=== PATIENT | male | born 1960 | race Caucasian/White ===

== ENCOUNTER 2020-06-19 10:52 | Inpatient (IN) | payer MEDICAID, SELFPAY ==
[~2020-06-19] VITALS: Ht 182.9 cm; Wt 85.1 kg
[2020-06-19] MEDS ORDERED: DILTIAZEM 5 MG/ML, 5ML ONE (11:07)
[2020-06-19 11:30] LABS: RED BLOOD COUNT 2.37 x10^6/uL (4.38-5.82)
[2020-06-19] MEDS ORDERED: PLEASE ENTER ALLERGIES MC SCH (11:30)
[2020-06-19] MEDS ORDERED: SODIUM CHLORIDE FLUSH 10ML SYR IVF ONE (11:30)
[2020-06-19] MEDS ORDERED: DILTIAZEM 5 MG/ML, 5ML IV ONE (11:30)
[2020-06-19] MEDS ORDERED: SODIUM CHLORIDE 0.9%, 500ML IVBOLUS ONE (11:30)
[2020-06-19 11:36] LABS: MEAN CORPUSCULAR HEMOGLOBIN 21.7 pg (27.5-34.5); MEAN CORPUSCULAR HGB CONC 31.1 g/dL (33.2-36.2); MEAN PLATELET VOLUME 7.3 fL (7.4-10.4); PLATELET COUNT 338 x10^3/uL (130-400); RED CELL DISTRIBUTION WIDTH 19.5 % (9.4-14.8)
[2020-06-19 11:37] LABS: INTERNATIONAL NORMALIZED RATIO 1.44 (0.93-1.1); PROTHROMBIN TIME 15.2 Seconds (9.6-11.5)
[2020-06-19 11:40] LABS: ANION GAP 17 mmol/L (5-15); CALCIUM 8.5 mg/dL (8.5-10.1); CHLORIDE 90 mmol/L (98-107); CREATININE 2.09 mg/dL (0.7-1.3)
[2020-06-19 11:41] LABS: ALANINE AMINOTRANSFERASE 124 U/L (12-78); ALBUMIN 2.3 g/dL (3.4-5.0)
[2020-06-19 11:45] LABS: ALKALINE PHOSPHATASE 86 U/L (45-117); BILIRUBIN,TOTAL 0.6 mg/dL (0.2-1.0); TROPONIN I < 0.015 ng/mL (0.000-0.045)
[2020-06-19 11:46] LABS: MD YES
[2020-06-19 11:54] LABS: ANISOCYTOSIS 1+; BAND#(MANUAL) 2.88 x10^3/uL; BANDS%(MANUAL) 10 % (0-7); LYMPH#(MANUAL) 1.15 x10^3/uL (1-3.4); LYMPHS% (MANUAL) 4 % (22-44); MICROCYTOSIS 2+; MONOS#(MANUAL) 0.86 x10^3/uL (0.3-2.7); MONOS% (MANUAL) 3 % (2-9); SEGS% (MANUAL) 83 % (42-75)
[2020-06-19 11:55] LABS: HYPOCHROMIA 2+; OVALOCYTES 1+; TEAR DROPS 1+
[2020-06-19 11:56] LABS: <PLATELET ESTIMATE> ADEQUATE; <PLT MORPHOLOGY> NORMAL PLT MORPH
[2020-06-19] MEDS ORDERED: CEFTRIAXONE PMX 1GM/50ML 50 ML IVPB ONE (12:00)
--- NOTE | 2020-06-19 12:06 | NUR ---
carlos in room for update, plan blood tx, protonix gtt, abx, pt tbadm, aware and agrees. +guiac. pt w freq nosebleeds. no hx gib. blood requested. lab at bedside drawing blood cultures. as
[2020-06-19] MEDS ORDERED: CEFTRIAXONE PMX 1GM/50ML 50 ML ONE (12:16)
[2020-06-19 12:29] VITALS: BP 90/61
[2020-06-19] MEDS ORDERED: HUM PROTHROMBIN CPLX IV ONE ×3 (12:30→12:45)
[2020-06-19] MEDS ORDERED: [UNRECOGNIZED DRUG - OTHER] IV ONE ×2 (12:30→12:45)
[2020-06-19] MEDS ORDERED: PANTOPRAZOLE 80 MG in SODIUM CHLORIDE 0.9% 50 ML IVPB ONE (12:30)
[2020-06-19] MEDS ORDERED: [UNRECOGNIZED DRUG - OTHER] IV ONE (12:30)
[2020-06-19] MEDS: PANTOPRAZOLE 80 MG in SODIUM CHLORIDE 0.9% 100 ML IV SCH ×2 (12:38→21:17)
--- NOTE | 2020-06-19 12:39 | NUR ---
blood hung w 2 rn check, consent signed, vs as charted, abx and protonix gtt initiated, compatible. as
--- NOTE | 2020-06-19 12:45 | NUR ---
pt denies transfusion related symptoms, blood rate incr. as
--- NOTE | 2020-06-19 12:56 | NUR ---
hypotnsive, blood on pressure bag. 500 cc ns bolus per verbal order by dr minaya, in room. pt tb icu. as
--- NOTE | 2020-06-19 13:00 | NUR ---
lactic 5.8, [place] aware, no sepsis boluses d/t elevated bnp, heart failure. as
[2020-06-19] MEDS ORDERED: NOREPINEPHRINE 8 MG in SODIUM CHLORIDE 0.9% 242 ML IV PRN (13:30)
[2020-06-19] MEDS ORDERED: ACETAMINOPHEN 650 MG SUPP PR PRN (13:30)
[2020-06-19] MEDS ORDERED: FILTER 0.22 MICRON IV PRN (13:30)
[2020-06-19] MEDS ORDERED: VANCOMYCIN PER PHARMACY MC PRN (13:30)
[2020-06-19] MEDS ORDERED: PHARMACY MAY ADJ FOR RENAL FX MC PRN (13:30)
[2020-06-19] MEDS ORDERED: SODIUM CHLORIDE 0.9% 1,000ML IVBOLUS ONE (13:30)
[2020-06-19] MEDS ORDERED: ONDANSETRON 2MG/ML, 2ML IVPB PRN (13:30)
[2020-06-19] MEDS ORDERED: AMIODARONE 150 MG in DEXTROSE 5% 97 ML IVPB ONE (13:45)
--- NOTE | 2020-06-19 13:46 | NUR ---
carlos in room to place central. kristopher chamberlain dr to see pt. 2nd prbc transfusing. as
[2020-06-19] MEDS ORDERED: DIGO125T85 PO (14:03)
[2020-06-19] MEDS ORDERED: MONT10TA96 PO (14:03)
[2020-06-19] MEDS ORDERED: METO50TA4 PO (14:03)
[2020-06-19] MEDS ORDERED: ROFL250T PO (14:03)
[2020-06-19] MEDS ORDERED: TIOT18CA INH (14:03)
[2020-06-19] MEDS ORDERED: ALBU2.5V NEB (14:03)
[2020-06-19] MEDS ORDERED: POTA20TA14 PO (14:03)
[2020-06-19] MEDS ORDERED: IPRA3AMP30 INH (14:03)
[2020-06-19] MEDS ORDERED: APIX5TAB PO (14:03)
[2020-06-19] MEDS ORDERED: METO100T5 PO (14:03)
[2020-06-19] MEDS ORDERED: FURO40TA6 PO (14:03)
[2020-06-19] MEDS ORDERED: ATOR40TA78 PO (14:03)
[2020-06-19] MEDS ORDERED: LOSA25TA2 PO (14:03)
[2020-06-19] MEDS ORDERED: SPIR25TA5 PO (14:03)
[2020-06-19] MEDS ORDERED: DILT240C82 PO (14:03)
[2020-06-19] MEDS ORDERED: FLUT1BLS10 INH (14:03)
--- NOTE | 2020-06-19 14:38 | NUR ---
puga inserted. as
[2020-06-19] MEDS: AMIODARONE 450 MG in DEXTROSE 5% 241 ML IV PRN ×2 (14:39→21:32)
[2020-06-19 14:40] LABS: % IRON SATURATION 4 % (20-55); IRON LEVEL 12 mcg/dL (65-175); TOTAL IRON BINDING CAPACITY 339 mcg/dL (250-450)
[2020-06-19] MEDS: MEROPENEM 500 MG in SODIUM CHLORIDE 0.9% 100 ML IV SCH ×2 (14:55→21:20)
[2020-06-19 15:03] VITALS: BP 91/60
--- NOTE | 2020-06-19 15:04 | NUR ---
Break RN note: Pt medicated per SEP. Pt provided with cool washcloth per request. Pt requesting nebulized breathing tx, reports he normally takes them q4h at home.
--- NOTE | 2020-06-19 15:21 | NUR ---
Break RN note: Spoke with Dr. Rutledge regarding pt's home duoneb schedule. Orders recieved for duoneb tx q4-6hr PRN wheezing. Order entered.
[2020-06-19] MEDS ORDERED: ALBUTEROL/IPRATROPIUM 2.5MG/0.5MG, 3 ML ONE (15:23)
[2020-06-19] MEDS ORDERED: ALBUTEROL/IPRATROPIUM 2.5MG/0.5MG, 3 ML NEB PRN (15:30)
--- NOTE | 2020-06-19 15:40 | NUR ---
blood infused. [phone] cc. 250 cc NS w transfusion, 250 cc bolus on arrival, 100 cc ns per ems= 600 cc NS.
[2020-06-19 15:47] LABS: MICROSCOPIC INDICATED
[2020-06-19 15:48] LABS: OSMOLALITY,URINE 372 mOsm/kg (500-850)
--- NOTE | 2020-06-19 15:55 | NUR ---
REPORT TO [facility] [place]
[2020-06-19 17:00] VITALS: BP 128/71
[2020-06-19] MEDS ORDERED: VANCOMYCIN 2,000 MG in SODIUM CHLORIDE 0.9% 500 ML IV ONE (17:00)
[2020-06-19] MEDS ORDERED: PHARMACOKINETIC MONITORING MC PRN (17:00)
[2020-06-19] MEDS ORDERED: PHARMACOKINETIC CONSULTATION MC ONE (17:00)
[2020-06-19 18:12] VITALS: BP 101/72
[2020-06-19 18:30] VITALS: BP 118/72
[2020-06-19 18:46] LABS: TROPONIN I < 0.015 ng/mL (0.000-0.045)
[2020-06-19] MEDS ORDERED: LORazepam 2 MG/ML, 1ML ONE (20:06)
[2020-06-19] MEDS: LORazepam 2 MG/ML, 1ML IVPush PRN (20:10)
[2020-06-19] MEDS: FLUTICASONE/VILANTEROL 200-25MCG/INH INH SCH (21:20)
[2020-06-19 21:45] VITALS: BP 131/81
[2020-06-19] MEDS ORDERED: FUROSEMIDE 40 MG/4 ML ONE (21:58)
[2020-06-19] MEDS ORDERED: FUROSEMIDE 40 MG/4 ML IV ONE (22:00)
[2020-06-20] MEDS ORDERED: PHARMACY MAY ADJ FOR RENAL FX MC SCH (00:30)
[2020-06-20] MEDS ORDERED: SENNA/DOCUSATE TABLET NG PRN (00:30)
[2020-06-20] MEDS ORDERED: ONDANSETRON 2MG/ML, 2ML IV PRN (00:30)
[2020-06-20] MEDS ORDERED: LIDOCAINE-MPF 1%, 2ML ENDO PRN (00:30)
[2020-06-20] MEDS ORDERED: PROPOFOL 100 ML IV PRN (00:30)
[2020-06-20] MEDS ORDERED: BISACODYL 10 MG SUPP PR PRN (00:30)
[2020-06-20] MEDS ORDERED: GLUCAGON 1 MG IM PRN (00:30)
[2020-06-20] MEDS ORDERED: SENNA 176 MG/5 ML ORAL SOL NG PRN (00:30)
[2020-06-20] MEDS ORDERED: DEXTROSE 50%, 50ML SYRINGE IVPush PRN (00:30)
[2020-06-20] MEDS ORDERED: DEXTROSE 4 GM TAB.CHEW PO PRN (00:30)
[2020-06-20] MEDS ORDERED: LACTULOSE 20 GM/30 ML UDC NG PRN (00:30)
[2020-06-20 00:54] LABS: TRIGLYCERIDES 108 mg/dL (50-200)
[2020-06-20 00:57] LABS: TROPONIN I < 0.015 ng/mL (0.000-0.045)
[2020-06-20] MEDS: PROPOFOL 100 ML IV PRN ×4 (02:30→17:44)
[2020-06-20] MEDS: FENTANYL PF 1,000 MCG in SODIUM CHLORIDE 0.9% 80 ML IV PRN (03:18)
[2020-06-20] MEDS ORDERED: PROPOFOL 10 MG/ML, 100ML IV ONE (04:24)
[2020-06-20] MEDS ORDERED: SUCCINYLCHOLINE 20 MG/ML, 10ML ONE (04:24)
[2020-06-20] MEDS ORDERED: ETOMIDATE 20 MG/10 ML ONE (04:24)
[2020-06-20 05:08] LABS: BILIRUBIN,TOTAL 1.6 mg/dL (0.2-1.0); TROPONIN I 0.028 ng/mL (0.000-0.045)
[2020-06-20 05:14] LABS: ALANINE AMINOTRANSFERASE 996 U/L (12-78); ALBUMIN 2.2 g/dL (3.4-5.0); ANION GAP 13 mmol/L (5-15); CALCIUM 7.6 mg/dL (8.5-10.1); CHLORIDE 92 mmol/L (98-107); CREATININE 2.06 mg/dL (0.7-1.3); MEAN CORPUSCULAR HEMOGLOBIN 23.7 pg (27.5-34.5); MEAN CORPUSCULAR HGB CONC 31.7 g/dL (33.2-36.2); MEAN PLATELET VOLUME 7.1 fL (7.4-10.4); PLATELET COUNT 330 x10^3/uL (130-400); RED BLOOD COUNT 2.92 x10^6/uL (4.38-5.82); RED CELL DISTRIBUTION WIDTH 21.6 % (9.4-14.8)
[2020-06-20 05:30] LABS: ALKALINE PHOSPHATASE 84 U/L (45-117); BILIRUBIN,TOTAL 1.4 mg/dL (0.2-1.0); TOTAL PROTEIN 7.1 g/dL (6.4-8.2)
[2020-06-20] MEDS: PANTOPRAZOLE 80 MG in SODIUM CHLORIDE 0.9% 100 ML IV SCH ×2 (05:41→13:21)
[2020-06-20 05:49] VITALS: BP 94/58
[2020-06-20 06:05] VITALS: BP 90/59
[2020-06-20 06:05] LABS: MD YES
[2020-06-20 06:07] LABS: <PLATELET ESTIMATE> ADEQUATE; ANISOCYTOSIS 1+; BAND#(MANUAL) 1.99 x10^3/uL; BANDS%(MANUAL) 8 % (0-7); HYPOCHROMIA 2+; LARGE PLATELETS 1+; LYMPHS% (MANUAL) 2 % (22-44); METAMYELOCYTES% (MANUAL) 2 % (0-1); MICROCYTOSIS 2+; MONOS#(MANUAL) 1.25 x10^3/uL (0.3-2.7); MONOS% (MANUAL) 5 % (2-9); OVALOCYTES 1+; SEG#(MANUAL) 20.67 x10^3/uL (1.8-6.8); SEGS% (MANUAL) 83 % (42-75); TEAR DROPS 1+
[2020-06-20 06:08] LABS: POLYCHROMASIA 1+
[2020-06-20] MEDS: MEROPENEM 500 MG in SODIUM CHLORIDE 0.9% 100 ML IV SCH ×3 (06:16→21:09)
[2020-06-20 08:28] LABS: FIO2 40 %
[2020-06-20 09:00] VITALS: BP 95/63
[2020-06-20] MEDS: FLUTICASONE/VILANTEROL 200-25MCG/INH INH SCH ×2 (09:00→20:21)
[2020-06-20] MEDS: SODIUM CHLORIDE FLUSH 10ML SYR IVF SCH ×2 (09:00→21:09)
[2020-06-20] MEDS ORDERED: EPINEPHRINE SYRINGE 0.1 MG/ML, 10ML ONE (11:18)
[2020-06-20 12:07] VITALS: BP 105/64
[2020-06-20 12:25] VITALS: BP 99/70
[2020-06-20] MEDS: AMIODARONE 450 MG in DEXTROSE 5% 241 ML IV PRN (13:20)
[2020-06-20 15:08] VITALS: BP 92/59
[2020-06-20] MEDS: ALBUTEROL/IPRATROPIUM 2.5MG/0.5MG, 3 ML NPPB SCH (23:12)
[2020-06-21] MEDS: PANTOPRAZOLE 80 MG in SODIUM CHLORIDE 0.9% 100 ML IV SCH ×3 (00:02→20:33)
[2020-06-21] MEDS: FENTANYL PF 1,000 MCG in SODIUM CHLORIDE 0.9% 80 ML IV PRN (00:03)
[2020-06-21] MEDS: PROPOFOL 100 ML IV PRN ×5 (00:22→22:21)
[2020-06-21] MEDS: ALBUTEROL/IPRATROPIUM 2.5MG/0.5MG, 3 ML NPPB SCH ×6 (02:08→22:27)
[2020-06-21] MEDS: AMIODARONE 450 MG in DEXTROSE 5% 241 ML IV PRN ×2 (04:04→20:33)
[2020-06-21 04:45] LABS: MEAN CORPUSCULAR HEMOGLOBIN 24.6 pg (27.5-34.5); MEAN CORPUSCULAR HGB CONC 32.4 g/dL (33.2-36.2); MEAN PLATELET VOLUME 7.1 fL (7.4-10.4); PLATELET COUNT 328 x10^3/uL (130-400); RED BLOOD COUNT 3.25 x10^6/uL (4.38-5.82); RED CELL DISTRIBUTION WIDTH 22.4 % (9.4-14.8)
[2020-06-21 04:51] LABS: ANION GAP 9 mmol/L (5-15); CALCIUM 7.7 mg/dL (8.5-10.1); CHLORIDE 100 mmol/L (98-107)
[2020-06-21 04:54] LABS: BILIRUBIN,TOTAL 1.2 mg/dL (0.2-1.0); CREATININE 1.43 mg/dL (0.7-1.3)
[2020-06-21] MEDS: MEROPENEM 500 MG in SODIUM CHLORIDE 0.9% 100 ML IV SCH (05:15)
[2020-06-21 05:55] LABS: MD YES
[2020-06-21 05:56] LABS: BAND#(MANUAL) 1.16 x10^3/uL; BANDS%(MANUAL) 7 % (0-7); METAMYELOCYTES# (MANUAL) 0.33 x10^3/uL (0-0); METAMYELOCYTES% (MANUAL) 2 % (0-1); MONOS% (MANUAL) 3 % (2-9); MYELOCYTES# (MANUAL) 0.17 x10^3/uL (0-0); MYELOCYTES% (MANUAL) 1 % (0-0)
[2020-06-21 05:57] LABS: ANISOCYTOSIS 1+; HYPOCHROMIA 2+; LYMPH#(MANUAL) 0.66 x10^3/uL (1-3.4); LYMPHS% (MANUAL) 4 % (22-44); MICROCYTOSIS 1+; SEGS% (MANUAL) 83 % (42-75)
[2020-06-21 05:58] LABS: OVALOCYTES 1+; POLYCHROMASIA 1+
[2020-06-21 05:59] LABS: <PLATELET ESTIMATE> ADEQUATE; <PLT MORPHOLOGY> NORMAL PLT MORPH
[2020-06-21 06:00] LABS: TEAR DROPS 1+
[2020-06-21] MEDS: CEFTRIAXONE PMX 2GM/50ML 50 ML IVPB SCH (08:21)
[2020-06-21] MEDS: SODIUM CHLORIDE FLUSH 10ML SYR IVF SCH ×2 (08:23→21:00)
[2020-06-21] MEDS: FLUTICASONE/VILANTEROL 200-25MCG/INH INH SCH (08:23)
[2020-06-21] MEDS: AZITHROMYCIN 500 MG in SODIUM CHLORIDE 0.9% 250 ML IV SCH (08:35)
--- NOTE | 2020-06-21 14:03 | NUR ---
TF Recommendation: Promote ON propofol 80 ml/hr goal OFF propofol 90ml/hr goal
[2020-06-22] MEDS: FENTANYL PF 1,000 MCG in SODIUM CHLORIDE 0.9% 80 ML IV PRN ×2 (01:32→19:03)
[2020-06-22] MEDS: PROPOFOL 100 ML IV PRN ×5 (02:29→22:45)
[2020-06-22] MEDS: ALBUTEROL/IPRATROPIUM 2.5MG/0.5MG, 3 ML NPPB SCH ×6 (02:42→23:22)
[2020-06-22 04:22] LABS: MEAN CORPUSCULAR HGB CONC 31.2 g/dL (33.2-36.2); MEAN PLATELET VOLUME 6.9 fL (7.4-10.4); PLATELET COUNT 302 x10^3/uL (130-400); RED BLOOD COUNT 3.61 x10^6/uL (4.38-5.82); RED CELL DISTRIBUTION WIDTH 22.1 % (9.4-14.8)
[2020-06-22 04:33] LABS: ANION GAP 7 mmol/L (5-15); CALCIUM 8.1 mg/dL (8.5-10.1); CHLORIDE 104 mmol/L (98-107); CREATININE 0.89 mg/dL (0.7-1.3)
[2020-06-22 05:35] LABS: MD YES
[2020-06-22 05:37] LABS: ANISOCYTOSIS 1+; BAND#(MANUAL) 0.15 x10^3/uL; BANDS%(MANUAL) 1 % (0-7); HYPOCHROMIA 2+; LYMPH#(MANUAL) 0.91 x10^3/uL (1-3.4); LYMPHS% (MANUAL) 6 % (22-44); METAMYELOCYTES% (MANUAL) 2 % (0-1); MICROCYTOSIS 1+; MONOS#(MANUAL) 0.45 x10^3/uL (0.3-2.7); MONOS% (MANUAL) 3 % (2-9); MYELOCYTES# (MANUAL) 0.76 x10^3/uL (0-0); MYELOCYTES% (MANUAL) 5 % (0-0); OVALOCYTES 1+; POLYCHROMASIA 1+; SEG#(MANUAL) 12.53 x10^3/uL (1.8-6.8); SEGS% (MANUAL) 83 % (42-75); TEAR DROPS 1+
[2020-06-22 05:38] LABS: <PLATELET ESTIMATE> ADEQUATE; <PLT MORPHOLOGY> NORMAL PLT MORPH
[2020-06-22] MEDS: PANTOPRAZOLE 80 MG in SODIUM CHLORIDE 0.9% 100 ML IV SCH (06:25)
[2020-06-22] MEDS: SODIUM CHLORIDE FLUSH 10ML SYR IVF SCH ×2 (09:15→20:52)
[2020-06-22] MEDS: AZITHROMYCIN 500 MG in SODIUM CHLORIDE 0.9% 250 ML IV SCH (09:15)
[2020-06-22] MEDS ORDERED: LIDOCAINE 1%, 10ML ONE (10:04)
[2020-06-22] MEDS: CEFTRIAXONE PMX 2GM/50ML 50 ML IVPB SCH (10:59)
[2020-06-22] MEDS: AMIODARONE 450 MG in DEXTROSE 5% 241 ML IV PRN (15:25)
[2020-06-22] MEDS: PANTOPRAZOLE 40 MG IV IVPush SCH (20:52)
[2020-06-22] MEDS ORDERED: PANTOPRAZOLE 40 MG IV IVPush SCH (21:00)
[2020-06-23] MEDS: ALBUTEROL/IPRATROPIUM 2.5MG/0.5MG, 3 ML NPPB SCH ×2 (02:39→07:16)
[2020-06-23] MEDS: PROPOFOL 100 ML IV PRN ×4 (04:51→18:03)
[2020-06-23 05:06] LABS: MEAN CORPUSCULAR HEMOGLOBIN 24.3 pg (27.5-34.5); PLATELET COUNT 276 x10^3/uL (130-400); RED CELL DISTRIBUTION WIDTH 23.5 % (9.4-14.8)
[2020-06-23 05:19] LABS: CHLORIDE 105 mmol/L (98-107)
[2020-06-23] MEDS: AMIODARONE 450 MG in DEXTROSE 5% 241 ML IV PRN ×2 (05:23→23:01)
[2020-06-23 05:26] LABS: ALANINE AMINOTRANSFERASE 538 U/L (12-78); ALBUMIN 2.2 g/dL (3.4-5.0); ALKALINE PHOSPHATASE 84 U/L (45-117); BILIRUBIN, DIRECT 0.7 mg/dL (0.1-0.2); BILIRUBIN,INDIRECT 0.5 mg/dL (0.0-2.0); BILIRUBIN,TOTAL 1.2 mg/dL (0.2-1.0); CALCIUM 8.3 mg/dL (8.5-10.1); TOTAL PROTEIN 7.1 g/dL (6.4-8.2); TRIGLYCERIDES 122 mg/dL (50-200)
[2020-06-23 06:23] LABS: MD YES
[2020-06-23 06:26] LABS: ANISOCYTOSIS 1+; BAND#(MANUAL) 0.64 x10^3/uL; BANDS%(MANUAL) 4 % (0-7); EOS#(MANUAL) 0.32 x10^3/uL (0.0-0.4); EOS% (MANUAL) 2 % (1-7); LYMPH#(MANUAL) 0.48 x10^3/uL (1-3.4); LYMPHS% (MANUAL) 3 % (22-44); METAMYELOCYTES# (MANUAL) 0.81 x10^3/uL (0-0); METAMYELOCYTES% (MANUAL) 5 % (0-1); MICROCYTOSIS 1+; MONOS#(MANUAL) 0.64 x10^3/uL (0.3-2.7); MONOS% (MANUAL) 4 % (2-9); SEGS% (MANUAL) 82 % (42-75)
[2020-06-23 06:27] LABS: <PLATELET ESTIMATE> ADEQUATE; <PLT MORPHOLOGY> NORMAL PLT MORPH; HYPOCHROMIA 2+; OVALOCYTES 1+; POLYCHROMASIA 1+; TEAR DROPS 1+
[2020-06-23] MEDS: METOPROLOL TARTRATE 25 MG TAB PO SCH ×2 (08:49→16:00)
[2020-06-23] MEDS: SODIUM CHLORIDE FLUSH 10ML SYR IVF SCH ×2 (08:50→20:44)
[2020-06-23] MEDS: CEFTRIAXONE PMX 2GM/50ML 50 ML IVPB SCH (08:50)
[2020-06-23] MEDS: PANTOPRAZOLE 40 MG IV IVPush SCH ×2 (08:50→20:44)
[2020-06-23] MEDS: AZITHROMYCIN 500 MG in SODIUM CHLORIDE 0.9% 250 ML IV SCH (08:51)
[2020-06-23] MEDS ORDERED: ACETAMINOPHEN 325 MG TABLET ONE (09:07)
[2020-06-23] MEDS: ACETAMINOPHEN 650 MG/20.3 ML UDC PO PRN (09:09)
[2020-06-23 11:12] LABS: ALBUMIN 2.2 g/dL (3.4-5.0); ANION GAP 6 mmol/L (5-15); CALCIUM 8.6 mg/dL (8.5-10.1); CHLORIDE 104 mmol/L (98-107)
[2020-06-23 11:17] LABS: ALANINE AMINOTRANSFERASE 499 U/L (12-78); ALKALINE PHOSPHATASE 85 U/L (45-117); BILIRUBIN,TOTAL 0.9 mg/dL (0.2-1.0); CREATININE 0.95 mg/dL (0.7-1.3); TOTAL PROTEIN 7.3 g/dL (6.4-8.2)
[2020-06-23] MEDS: FENTANYL PF 1,000 MCG in SODIUM CHLORIDE 0.9% 80 ML IV PRN (13:56)
[2020-06-23] MEDS ORDERED: SODIUM CHLORIDE 0.9%, 500ML IVBOLUS ONE (15:30)
[2020-06-23] MEDS ORDERED: ALBUTEROL/IPRATROPIUM 2.5MG/0.5MG, 3 ML NPPB SCH (19:00)
[2020-06-24] MEDS: METOPROLOL TARTRATE 25 MG TAB PO SCH ×3 (00:45→15:18)
[2020-06-24] MEDS: ALBUTEROL-IPRATROPIUM MDI INH INH SCH ×5 (01:30→21:58)
[2020-06-24 04:08] VITALS: BP 110/62
[2020-06-24 04:43] LABS: ANION GAP 5 mmol/L (5-15); CALCIUM 8.5 mg/dL (8.5-10.1); CHLORIDE 107 mmol/L (98-107)
[2020-06-24] MEDS: ACETAMINOPHEN 650 MG/20.3 ML UDC PO PRN ×2 (05:08→23:10)
[2020-06-24 05:23] LABS: MEAN CORPUSCULAR HEMOGLOBIN 23.8 pg (27.5-34.5); MEAN CORPUSCULAR HGB CONC 30.3 g/dL (33.2-36.2); MEAN PLATELET VOLUME 7.4 fL (7.4-10.4); PLATELET COUNT 231 x10^3/uL (130-400); RED BLOOD COUNT 3.49 x10^6/uL (4.38-5.82); RED CELL DISTRIBUTION WIDTH 23.9 % (9.4-14.8)
[2020-06-24 05:57] LABS: MD YES
[2020-06-24 05:59] LABS: <PLATELET ESTIMATE> ADEQUATE; <PLT MORPHOLOGY> NORMAL PLT MORPH; ANISOCYTOSIS 1+; BAND#(MANUAL) 0.35 x10^3/uL; BANDS%(MANUAL) 2 % (0-7); EOS#(MANUAL) 0.17 x10^3/uL (0.0-0.4); EOS% (MANUAL) 1 % (1-7); HYPOCHROMIA 2+; LYMPHS% (MANUAL) 4 % (22-44); METAMYELOCYTES% (MANUAL) 4 % (0-1); MICROCYTOSIS 1+; MONOS#(MANUAL) 0.35 x10^3/uL (0.3-2.7); MONOS% (MANUAL) 2 % (2-9); OVALOCYTES 1+; POLYCHROMASIA 1+; SEG#(MANUAL) 15.14 x10^3/uL (1.8-6.8); SEGS% (MANUAL) 87 % (42-75); TEAR DROPS 1+
[2020-06-24] MEDS: ALBUTEROL HFA 90 MCG/SPRAY INH PRN ×3 (07:55→13:17)
[2020-06-24] MEDS: MEROPENEM 1 GM in SODIUM CHLORIDE 0.9% 100 ML IV SCH ×3 (08:01→23:00)
[2020-06-24] MEDS ORDERED: VANCOMYCIN PER PHARMACY MC PRN (08:04)
[2020-06-24] MEDS: SODIUM CHLORIDE FLUSH 10ML SYR IVF SCH ×2 (08:15→21:58)
[2020-06-24] MEDS: PANTOPRAZOLE 40 MG IV IVPush SCH (08:19)
[2020-06-24] MEDS ORDERED: PHARMACOKINETIC MONITORING MC PRN (08:30)
[2020-06-24] MEDS ORDERED: PHARMACOKINETIC CONSULTATION MC ONE (08:30)
[2020-06-24] MEDS ORDERED: VANCOMYCIN 2,300 MG in SODIUM CHLORIDE 0.9% 500 ML IV ONE (08:30)
[2020-06-24] MEDS: AZITHROMYCIN 500 MG in SODIUM CHLORIDE 0.9% 250 ML IV SCH (08:53)
[2020-06-24] MEDS: PANTOPRAZOLE 40MG TABLET PO SCH ×2 (09:09→21:59)
[2020-06-24] MEDS: AMIODARONE 200 MG TABLET PO SCH ×2 (09:09→21:59)
[2020-06-24] MEDS ORDERED: MAGNESIUM SULFATE PMX 2GM/50ML 50 ML IV ONE (13:30)
[2020-06-24] MEDS: LORazepam 2 MG/ML, 1ML IVPush PRN (15:26)
[2020-06-24 16:39] VITALS: BP 122/80
[2020-06-24] MEDS: VANCOMYCIN 2,000 MG in SODIUM CHLORIDE 0.9% 500 ML IV SCH (17:52)
[2020-06-24 19:43] VITALS: BP 134/84
[2020-06-24] MEDS ORDERED: VANCOMYCIN 1,200 MG in SODIUM CHLORIDE 0.9% 250 ML IV SCH (21:00)
[2020-06-25] MEDS: METOPROLOL TARTRATE 25 MG TAB PO SCH ×2 (00:03→10:22)
[2020-06-25 01:11] VITALS: BP 120/75
[2020-06-25] MEDS: VANCOMYCIN 2,000 MG in SODIUM CHLORIDE 0.9% 500 ML IV SCH ×2 (05:00→22:43)
[2020-06-25 05:26] LABS: MEAN CORPUSCULAR HEMOGLOBIN 24.4 pg (27.5-34.5); MEAN CORPUSCULAR HGB CONC 30.9 g/dL (33.2-36.2); MEAN PLATELET VOLUME 7.4 fL (7.4-10.4); PLATELET COUNT 259 x10^3/uL (130-400); RED BLOOD COUNT 3.93 x10^6/uL (4.38-5.82); RED CELL DISTRIBUTION WIDTH 24.9 % (9.4-14.8)
[2020-06-25 05:31] LABS: ANION GAP 7 mmol/L (5-15); CALCIUM 8.2 mg/dL (8.5-10.1); CHLORIDE 102 mmol/L (98-107)
[2020-06-25 05:35] LABS: BILIRUBIN,TOTAL 1.3 mg/dL (0.2-1.0); CREATININE 0.63 mg/dL (0.7-1.3); VANCOMYCIN,RANDOM 24.3 mcg/mL
[2020-06-25 06:16] LABS: MD YES
[2020-06-25 06:17] LABS: BAND#(MANUAL) 0.31 x10^3/uL; BANDS%(MANUAL) 2 % (0-7); EOS#(MANUAL) 0.15 x10^3/uL (0.0-0.4); EOS% (MANUAL) 1 % (1-7); LYMPH#(MANUAL) 1.22 x10^3/uL (1-3.4); LYMPHS% (MANUAL) 8 % (22-44); METAMYELOCYTES# (MANUAL) 0.15 x10^3/uL (0-0); METAMYELOCYTES% (MANUAL) 1 % (0-1); MONOS#(MANUAL) 0.46 x10^3/uL (0.3-2.7); MONOS% (MANUAL) 3 % (2-9); SEG#(MANUAL) 13.01 x10^3/uL (1.8-6.8); SEGS% (MANUAL) 85 % (42-75)
[2020-06-25 06:18] LABS: ANISOCYTOSIS 1+; HYPOCHROMIA 1+; MICROCYTOSIS 1+; OVALOCYTES 1+; POLYCHROMASIA 1+; TEAR DROPS 1+
[2020-06-25 06:19] LABS: <PLATELET ESTIMATE> ADEQUATE; <PLT MORPHOLOGY> NORMAL PLT MORPH
[2020-06-25] MEDS: ALBUTEROL-IPRATROPIUM MDI INH INH SCH ×4 (06:37→23:36)
[2020-06-25] MEDS: MEROPENEM 1 GM in SODIUM CHLORIDE 0.9% 100 ML IV SCH ×2 (07:50→15:15)
[2020-06-25 08:31] VITALS: BP 111/84
[2020-06-25 09:09] LABS: ALBUMIN 2.1 g/dL (3.4-5.0)
[2020-06-25 09:12] LABS: ALANINE AMINOTRANSFERASE 275 U/L (12-78); ALKALINE PHOSPHATASE 74 U/L (45-117)
[2020-06-25] MEDS: ALBUTEROL HFA 90 MCG/SPRAY INH PRN ×4 (10:07→23:03)
[2020-06-25] MEDS: PANTOPRAZOLE 40MG TABLET PO SCH ×2 (10:21→19:59)
[2020-06-25] MEDS: AZITHROMYCIN 500 MG in SODIUM CHLORIDE 0.9% 250 ML IV SCH (10:21)
[2020-06-25] MEDS: AMIODARONE 200 MG TABLET PO SCH ×2 (10:22→19:59)
[2020-06-25] MEDS: SODIUM CHLORIDE FLUSH 10ML SYR IVF SCH ×2 (10:22→20:12)
[2020-06-25 12:20] VITALS: BP 118/77
[2020-06-25] MEDS: METOPROLOL TARTRATE 50 MG TAB PO SCH (15:15)
[2020-06-25 19:57] VITALS: BP 117/81
[2020-06-26 00:44] VITALS: BP 105/72
[2020-06-26 01:15] VITALS: BP 121/76
[2020-06-26] MEDS: METOPROLOL TARTRATE 50 MG TAB PO SCH ×3 (01:19→17:38)
[2020-06-26] MEDS ORDERED: MELATONIN 5 MG TABLET ONE (01:56)
[2020-06-26] MEDS: MELATONIN 5 MG TABLET PO SCH ×2 (01:58→20:20)
[2020-06-26] MEDS: MEROPENEM 1 GM in SODIUM CHLORIDE 0.9% 100 ML IV SCH ×3 (01:59→18:37)
[2020-06-26] MEDS: ALBUTEROL HFA 90 MCG/SPRAY INH PRN ×3 (03:21→17:54)
[2020-06-26 05:48] LABS: ANION GAP 6 mmol/L (5-15); CALCIUM 8.2 mg/dL (8.5-10.1); CHLORIDE 104 mmol/L (98-107)
[2020-06-26 05:50] LABS: BASOPHILS % (AUTO) 1 % (0-1); EOSINOPHILS % (AUTO) 1 % (1-7); LYMPHOCYTES % (AUTO) 5 % (22-44); MEAN CORPUSCULAR HGB CONC 30.8 g/dL (33.2-36.2); MEAN PLATELET VOLUME 7.4 fL (7.4-10.4); MONOCYTES % (AUTO) 6 % (2-9); NEUTROPHILS % (AUTO) 88 % (42-75); PLATELET COUNT 251 x10^3/uL (130-400); RED BLOOD COUNT 3.93 x10^6/uL (4.38-5.82); RED CELL DISTRIBUTION WIDTH 25.5 % (9.4-14.8)
[2020-06-26 05:51] LABS: BILIRUBIN,TOTAL 1.1 mg/dL (0.2-1.0); TRIGLYCERIDES 79 mg/dL (50-200)
[2020-06-26] MEDS: ALBUTEROL-IPRATROPIUM MDI INH INH SCH ×4 (06:16→20:19)
[2020-06-26 06:41] LABS: MD SCAN
[2020-06-26 09:34] VITALS: BP 112/75
[2020-06-26 09:40] LABS: ALANINE AMINOTRANSFERASE 170 U/L (12-78); ANION GAP 5 mmol/L (5-15); CALCIUM 8.3 mg/dL (8.5-10.1); CHLORIDE 105 mmol/L (98-107); CREATININE 0.75 mg/dL (0.7-1.3)
[2020-06-26 09:42] LABS: ALKALINE PHOSPHATASE 67 U/L (45-117); BILIRUBIN,TOTAL 1.2 mg/dL (0.2-1.0); TOTAL PROTEIN 6.8 g/dL (6.4-8.2)
[2020-06-26] MEDS: AMIODARONE 200 MG TABLET PO SCH ×2 (09:45→20:20)
[2020-06-26] MEDS: PANTOPRAZOLE 40MG TABLET PO SCH ×2 (09:45→20:20)
[2020-06-26] MEDS: SODIUM CHLORIDE FLUSH 10ML SYR IVF SCH ×2 (09:48→20:19)
[2020-06-26 12:48] VITALS: BP 107/74
[2020-06-26] MEDS: DIGOXIN 0.125 MG TABLET PO SCH (14:04)
[2020-06-26] MEDS: MONTELUKAST 10 MG TABLET PO SCH (14:04)
[2020-06-26] MEDS: SPIRONOLACTONE 25 MG TABLET PO SCH (14:04)
[2020-06-26] MEDS: DILTIAZEM 240 MG CAP.ER.24H PO SCH (14:05)
[2020-06-26] MEDS: TIOTROPIUM BROMIDE 18 MCG/INH INH SCH (15:14)
[2020-06-26] MEDS: VANCOMYCIN 2,000 MG in SODIUM CHLORIDE 0.9% 500 ML IV SCH (16:10)
[2020-06-26 19:46] VITALS: BP 112/74
[2020-06-26] MEDS: FUROSEMIDE 40 MG TABLET PO SCH (20:20)
[2020-06-26] MEDS: ATORVASTATIN 40 MG TABLET PO SCH (20:20)
[2020-06-27] MEDS: MEROPENEM 1 GM in SODIUM CHLORIDE 0.9% 100 ML IV SCH ×3 (00:34→16:31)
[2020-06-27] MEDS: METOPROLOL TARTRATE 50 MG TAB PO SCH ×3 (00:34→16:31)
[2020-06-27 00:40] VITALS: BP 108/73
[2020-06-27] MEDS: ALBUTEROL HFA 90 MCG/SPRAY INH PRN ×3 (03:32→22:28)
[2020-06-27 05:26] LABS: BASOPHILS % (AUTO) 1 % (0-1); EOSINOPHILS % (AUTO) 1 % (1-7); LYMPHOCYTES % (AUTO) 5 % (22-44); MEAN CORPUSCULAR HEMOGLOBIN 24.3 pg (27.5-34.5); MEAN CORPUSCULAR HGB CONC 30.9 g/dL (33.2-36.2); MEAN PLATELET VOLUME 7.1 fL (7.4-10.4); MONOCYTES % (AUTO) 6 % (2-9); NEUTROPHILS % (AUTO) 88 % (42-75); PLATELET COUNT 241 x10^3/uL (130-400); RED BLOOD COUNT 3.86 x10^6/uL (4.38-5.82); RED CELL DISTRIBUTION WIDTH 25.3 % (9.4-14.8)
[2020-06-27 05:34] LABS: ANION GAP 7 mmol/L (5-15); CALCIUM 8.2 mg/dL (8.5-10.1); CHLORIDE 103 mmol/L (98-107)
[2020-06-27 05:36] LABS: CREATININE 0.69 mg/dL (0.7-1.3)
[2020-06-27 05:37] LABS: BILIRUBIN,TOTAL 1.2 mg/dL (0.2-1.0)
[2020-06-27] MEDS: ALBUTEROL-IPRATROPIUM MDI INH INH SCH ×4 (05:57→20:15)
[2020-06-27 06:16] LABS: MD SCAN
[2020-06-27 06:57] VITALS: BP 106/69
[2020-06-27] MEDS ORDERED: MAGNESIUM SULFATE PMX 2GM/50ML 50 ML IV ONE (08:00)
[2020-06-27] MEDS: FUROSEMIDE 40 MG TABLET PO SCH ×2 (09:00→20:10)
[2020-06-27] MEDS: SODIUM CHLORIDE FLUSH 10ML SYR IVF SCH ×2 (09:00→20:15)
[2020-06-27] MEDS: FLUTICASONE/VILANTEROL 200-25MCG/INH INH SCH (09:00)
[2020-06-27] MEDS ORDERED: FUROSEMIDE 40 MG/4 ML IV SCH (09:00)
[2020-06-27] MEDS: TIOTROPIUM BROMIDE 18 MCG/INH INH SCH (09:56)
[2020-06-27] MEDS: PANTOPRAZOLE 40MG TABLET PO SCH ×2 (09:58→20:10)
[2020-06-27] MEDS: POTASSIUM CHLORIDE 20 MEQ TAB.ER.PRT PO SCH (09:58)
[2020-06-27] MEDS: SPIRONOLACTONE 25 MG TABLET PO SCH (09:58)
[2020-06-27] MEDS: DIGOXIN 0.125 MG TABLET PO SCH (09:59)
[2020-06-27] MEDS: AMIODARONE 200 MG TABLET PO SCH ×2 (09:59→20:10)
[2020-06-27] MEDS: MONTELUKAST 10 MG TABLET PO SCH (09:59)
[2020-06-27] MEDS: DILTIAZEM 240 MG CAP.ER.24H PO SCH (09:59)
[2020-06-27 10:33] LABS: ALANINE AMINOTRANSFERASE 141 U/L (12-78); ALBUMIN 2.1 g/dL (3.4-5.0)
[2020-06-27 10:35] LABS: ALKALINE PHOSPHATASE 68 U/L (45-117); TOTAL PROTEIN 6.9 g/dL (6.4-8.2)
[2020-06-27 12:53] VITALS: BP 115/73
[2020-06-27 15:33] LABS: INTERNATIONAL NORMALIZED RATIO 1.25 (0.93-1.1); PROTHROMBIN TIME 13.2 Seconds (9.6-11.5)
[2020-06-27 19:54] VITALS: BP_SYST 101; BP_SYST 97; BP_DIAS 63; BP_DIAS 69
[2020-06-27] MEDS: MELATONIN 5 MG TABLET PO SCH (20:10)
[2020-06-27] MEDS: ATORVASTATIN 40 MG TABLET PO SCH (20:11)
[2020-06-28] MEDS: METOPROLOL TARTRATE 50 MG TAB PO SCH ×3 (00:08→16:30)
[2020-06-28] MEDS: MEROPENEM 1 GM in SODIUM CHLORIDE 0.9% 100 ML IV SCH ×3 (00:46→16:30)
[2020-06-28] MEDS: ALBUTEROL-IPRATROPIUM MDI INH INH PRN (00:49)
[2020-06-28 02:13] VITALS: BP 103/68
[2020-06-28] MEDS: ALBUTEROL HFA 90 MCG/SPRAY INH PRN (02:58)
[2020-06-28 05:31] LABS: BASOPHILS % (AUTO) 0 % (0-1); EOSINOPHILS % (AUTO) 1 % (1-7); LYMPHOCYTES % (AUTO) 8 % (22-44); MEAN CORPUSCULAR HEMOGLOBIN 24.1 pg (27.5-34.5); MEAN CORPUSCULAR HGB CONC 30.6 g/dL (33.2-36.2); MEAN PLATELET VOLUME 7.1 fL (7.4-10.4); MONOCYTES % (AUTO) 9 % (2-9); NEUTROPHILS % (AUTO) 82 % (42-75); PLATELET COUNT 214 x10^3/uL (130-400); RED BLOOD COUNT 3.85 x10^6/uL (4.38-5.82); RED CELL DISTRIBUTION WIDTH 25.7 % (9.4-14.8)
[2020-06-28] MEDS: ALBUTEROL-IPRATROPIUM MDI INH INH SCH ×4 (05:34→20:52)
[2020-06-28 05:38] LABS: ANION GAP 4 mmol/L (5-15); BILIRUBIN,TOTAL 1.1 mg/dL (0.2-1.0); CALCIUM 8.3 mg/dL (8.5-10.1); CHLORIDE 101 mmol/L (98-107); CREATININE 0.63 mg/dL (0.7-1.3)
[2020-06-28 06:26] LABS: MD SCAN
[2020-06-28 07:25] VITALS: BP 105/69
[2020-06-28] MEDS: TIOTROPIUM BROMIDE 18 MCG/INH INH SCH (09:00)
[2020-06-28] MEDS ORDERED: FUROSEMIDE 40 MG/4 ML IV ONE (09:00)
[2020-06-28] MEDS: FLUTICASONE/VILANTEROL 200-25MCG/INH INH SCH (09:00)
[2020-06-28 09:47] LABS: ANION GAP 5 mmol/L (5-15); CALCIUM 8.4 mg/dL (8.5-10.1); CHLORIDE 101 mmol/L (98-107)
[2020-06-28 09:53] LABS: ALANINE AMINOTRANSFERASE 100 U/L (12-78); ALKALINE PHOSPHATASE 62 U/L (45-117); BILIRUBIN,TOTAL 1.2 mg/dL (0.2-1.0); CREATININE 0.69 mg/dL (0.7-1.3); TOTAL PROTEIN 6.8 g/dL (6.4-8.2)
[2020-06-28] MEDS: DILTIAZEM 240 MG CAP.ER.24H PO SCH (09:56)
[2020-06-28] MEDS: SPIRONOLACTONE 25 MG TABLET PO SCH (09:57)
[2020-06-28] MEDS: AMIODARONE 200 MG TABLET PO SCH ×2 (09:57→22:08)
[2020-06-28] MEDS: MONTELUKAST 10 MG TABLET PO SCH (09:57)
[2020-06-28] MEDS: PANTOPRAZOLE 40MG TABLET PO SCH ×2 (09:57→22:07)
[2020-06-28] MEDS: DIGOXIN 0.125 MG TABLET PO SCH (09:58)
[2020-06-28] MEDS: POTASSIUM CHLORIDE 20 MEQ TAB.ER.PRT PO SCH (09:58)
[2020-06-28] MEDS: FUROSEMIDE 40 MG/4 ML IV SCH ×2 (10:00→16:30)
[2020-06-28] MEDS: SODIUM CHLORIDE FLUSH 10ML SYR IVF SCH ×2 (10:04→22:09)
[2020-06-28 12:10] VITALS: BP 122/86
[2020-06-28 19:11] VITALS: BP 113/75
[2020-06-28] MEDS: MELATONIN 5 MG TABLET PO SCH (22:08)
[2020-06-28] MEDS: ATORVASTATIN 40 MG TABLET PO SCH (22:08)
[2020-06-28 23:08] VITALS: BP 115/68
[2020-06-29] MEDS: MEROPENEM 1 GM in SODIUM CHLORIDE 0.9% 100 ML IV SCH ×3 (01:02→18:16)
[2020-06-29] MEDS: METOPROLOL TARTRATE 50 MG TAB PO SCH ×3 (01:02→18:02)
[2020-06-29] MEDS: ALBUTEROL-IPRATROPIUM MDI INH INH PRN (02:06)
[2020-06-29 05:51] LABS: BASOPHILS % (AUTO) 1 % (0-1); EOSINOPHILS % (AUTO) 1 % (1-7); LYMPHOCYTES % (AUTO) 9 % (22-44); MEAN CORPUSCULAR HGB CONC 30.8 g/dL (33.2-36.2); MEAN PLATELET VOLUME 7.4 fL (7.4-10.4); MONOCYTES % (AUTO) 9 % (2-9); NEUTROPHILS % (AUTO) 81 % (42-75); PLATELET COUNT 236 x10^3/uL (130-400); RED BLOOD COUNT 4.05 x10^6/uL (4.38-5.82)
[2020-06-29 06:01] LABS: CHLORIDE 97 mmol/L (98-107)
[2020-06-29 06:07] LABS: ANION GAP 6 mmol/L (5-15); BILIRUBIN,TOTAL 1.2 mg/dL (0.2-1.0); CALCIUM 8.3 mg/dL (8.5-10.1); CREATININE 0.69 mg/dL (0.7-1.3); TRIGLYCERIDES 78 mg/dL (50-200)
[2020-06-29 06:19] LABS: INTERNATIONAL NORMALIZED RATIO 1.26 (0.93-1.1); PROTHROMBIN TIME 13.3 Seconds (9.6-11.5)
[2020-06-29 06:41] LABS: MD MORPH REVIEW ONLY
[2020-06-29 06:42] LABS: ANISOCYTOSIS 1+; MICROCYTOSIS 1+; POLYCHROMASIA 1+
[2020-06-29 06:43] LABS: <PLATELET ESTIMATE> ADEQUATE; <PLT MORPHOLOGY> NORMAL PLT MORPH
[2020-06-29] MEDS: ALBUTEROL-IPRATROPIUM MDI INH INH SCH ×4 (06:54→19:59)
[2020-06-29] MEDS: FUROSEMIDE 40 MG/4 ML IV SCH ×2 (06:55→18:02)
[2020-06-29 07:45] VITALS: BP 114/74
[2020-06-29] MEDS: SODIUM CHLORIDE FLUSH 10ML SYR IVF SCH ×2 (08:55→20:01)
[2020-06-29 09:19] LABS: ALANINE AMINOTRANSFERASE 89 U/L (12-78); ALBUMIN 2.2 g/dL (3.4-5.0); ANION GAP 5 mmol/L (5-15); CALCIUM 8.6 mg/dL (8.5-10.1); CHLORIDE 96 mmol/L (98-107)
[2020-06-29 09:22] LABS: ALKALINE PHOSPHATASE 68 U/L (45-117); BILIRUBIN,TOTAL 1.3 mg/dL (0.2-1.0); TOTAL PROTEIN 7.3 g/dL (6.4-8.2)
[2020-06-29] MEDS ORDERED: MIDAZOLAM 1 MG/ML, 2ML ONE (09:27)
[2020-06-29] MEDS ORDERED: FENTANYL PF 250 MCG/5ML ONE (09:27)
[2020-06-29] MEDS ORDERED: PROPOFOL 10 MG/ML, 20ML ONE (09:28)
[2020-06-29] MEDS ORDERED: ROCURONIUM 10MG/ML,5ML ONE (09:28)
[2020-06-29] MEDS ORDERED: CHLORHEXIDINE 15 ML UDC ONE (09:38)
[2020-06-29] MEDS ORDERED: DEXAMETHASONE 4 MG/ML, 1ML ONE (10:31)
[2020-06-29] MEDS ORDERED: SUGAMMADEX 200 MG/2 ML IVPush ONE (11:22)
[2020-06-29] MEDS ORDERED: EPHEDRINE 50 MG/ML, 1ML IVPush PRN (12:00)
[2020-06-29] MEDS ORDERED: OXYcodone 5 MG/5 ML ORAL.SOL UDC PO PRN (12:00)
[2020-06-29] MEDS ORDERED: DIPHENHYDRAMINE 50 MG/ML, 1ML IVPush PRN (12:00)
[2020-06-29] MEDS ORDERED: MEPERIDINE/PF 25MG/0.5ML IVPush PRN (12:00)
[2020-06-29] MEDS ORDERED: hydrALAzine 20 MG/ML, 1ML IV PRN (12:00)
[2020-06-29] MEDS ORDERED: MIDAZOLAM 1 MG/ML, 2ML IV PRN (12:00)
[2020-06-29] MEDS ORDERED: PROMETHAZINE 12.5 MG SUPP PR PRN (12:00)
[2020-06-29] MEDS ORDERED: ONDANSETRON 2MG/ML, 2ML IVPush PRN (12:00)
[2020-06-29] MEDS ORDERED: DIAZEPAM 5 MG/ML, 2ML IVPush PRN (12:00)
[2020-06-29] MEDS ORDERED: PROMETHAZINE 25 MG/ML, 1ML IVPush PRN (12:00)
[2020-06-29] MEDS ORDERED: ALBUTEROL SULFATE 2.5 MG/3 ML NPPB PRN (12:00)
[2020-06-29] MEDS ORDERED: HYDROmorphone 1 MG/ML, 1ML INJ IVPush PRN (12:00)
[2020-06-29] MEDS ORDERED: LABETALOL 5MG/ML, 20ML IV PRN (12:00)
[2020-06-29 12:51] VITALS: BP 113/79
[2020-06-29] MEDS: AMIODARONE 200 MG TABLET PO SCH ×2 (12:54→20:01)
[2020-06-29] MEDS: POTASSIUM CHLORIDE 20 MEQ TAB.ER.PRT PO SCH (12:54)
[2020-06-29] MEDS: MONTELUKAST 10 MG TABLET PO SCH (12:55)
[2020-06-29] MEDS: PANTOPRAZOLE 40MG TABLET PO SCH ×2 (12:55→20:01)
[2020-06-29] MEDS: DILTIAZEM 240 MG CAP.ER.24H PO SCH (12:55)
[2020-06-29] MEDS: DIGOXIN 0.125 MG TABLET PO SCH (12:55)
[2020-06-29] MEDS: TIOTROPIUM BROMIDE 18 MCG/INH INH SCH (13:00)
[2020-06-29] MEDS: SPIRONOLACTONE 25 MG TABLET PO SCH (13:02)
[2020-06-29] MEDS: FLUTICASONE/VILANTEROL 200-25MCG/INH INH SCH (13:04)
[2020-06-29 14:30] VITALS: BP 109/74
[2020-06-29 19:53] VITALS: BP 111/77
[2020-06-29] MEDS: ATORVASTATIN 40 MG TABLET PO SCH (20:00)
[2020-06-29] MEDS: MELATONIN 5 MG TABLET PO SCH (20:01)
[2020-06-30 01:37] VITALS: BP 112/74
[2020-06-30] MEDS: MEROPENEM 1 GM in SODIUM CHLORIDE 0.9% 100 ML IV SCH ×3 (01:42→16:54)
[2020-06-30] MEDS: METOPROLOL TARTRATE 50 MG TAB PO SCH ×3 (01:42→16:54)
[2020-06-30] MEDS: ALBUTEROL-IPRATROPIUM MDI INH INH PRN (02:09)
[2020-06-30 05:18] LABS: BASOPHILS % (AUTO) 1 % (0-1); EOSINOPHILS % (AUTO) 0 % (1-7); LYMPHOCYTES % (AUTO) 4 % (22-44); MEAN CORPUSCULAR HEMOGLOBIN 23.9 pg (27.5-34.5); MEAN CORPUSCULAR HGB CONC 31.1 g/dL (33.2-36.2); MONOCYTES % (AUTO) 6 % (2-9); NEUTROPHILS % (AUTO) 89 % (42-75); PLATELET COUNT 239 x10^3/uL (130-400); RED BLOOD COUNT 4.22 x10^6/uL (4.38-5.82); RED CELL DISTRIBUTION WIDTH 25.5 % (9.4-14.8)
[2020-06-30 05:24] LABS: ALANINE AMINOTRANSFERASE 68 U/L (12-78); ANION GAP 3 mmol/L (5-15); CALCIUM 8.4 mg/dL (8.5-10.1); CHLORIDE 96 mmol/L (98-107)
[2020-06-30 05:27] LABS: ALKALINE PHOSPHATASE 68 U/L (45-117); BILIRUBIN,TOTAL 1.2 mg/dL (0.2-1.0); CREATININE 0.82 mg/dL (0.7-1.3)
[2020-06-30] MEDS: ALBUTEROL-IPRATROPIUM MDI INH INH SCH ×4 (06:06→23:00)
[2020-06-30 06:10] LABS: MD SCAN
[2020-06-30 08:02] VITALS: BP 116/69
[2020-06-30] MEDS: PANTOPRAZOLE 40MG TABLET PO SCH ×2 (09:13→20:36)
[2020-06-30] MEDS: SPIRONOLACTONE 25 MG TABLET PO SCH (09:13)
[2020-06-30] MEDS: POTASSIUM CHLORIDE 20 MEQ TAB.ER.PRT PO SCH (09:13)
[2020-06-30] MEDS: DIGOXIN 0.125 MG TABLET PO SCH (09:13)
[2020-06-30] MEDS: DILTIAZEM 240 MG CAP.ER.24H PO SCH (09:13)
[2020-06-30] MEDS: MONTELUKAST 10 MG TABLET PO SCH (09:13)
[2020-06-30] MEDS: FLUTICASONE/VILANTEROL 200-25MCG/INH INH SCH (09:14)
[2020-06-30] MEDS: FUROSEMIDE 40 MG/4 ML IV SCH ×2 (09:14→16:54)
[2020-06-30] MEDS: AMIODARONE 200 MG TABLET PO SCH ×2 (09:14→20:36)
[2020-06-30] MEDS: TIOTROPIUM BROMIDE 18 MCG/INH INH SCH (09:15)
[2020-06-30] MEDS: SODIUM CHLORIDE FLUSH 10ML SYR IVF SCH ×2 (12:39→20:39)
[2020-06-30 14:05] VITALS: BP 100/56
[2020-06-30] MEDS: ALBUTEROL HFA 90 MCG/SPRAY INH PRN (18:41)
[2020-06-30 20:34] VITALS: BP 106/68
[2020-06-30] MEDS: MELATONIN 5 MG TABLET PO SCH (20:36)
[2020-06-30] MEDS: ATORVASTATIN 40 MG TABLET PO SCH (20:37)
[2020-07-01 00:46] VITALS: BP 108/68
[2020-07-01] MEDS: MEROPENEM 1 GM in SODIUM CHLORIDE 0.9% 100 ML IV SCH ×3 (00:50→17:15)
[2020-07-01] MEDS: METOPROLOL TARTRATE 50 MG TAB PO SCH ×3 (00:51→17:13)
[2020-07-01] MEDS: ALBUTEROL HFA 90 MCG/SPRAY INH PRN ×2 (03:53→21:13)
[2020-07-01 05:27] LABS: ANION GAP 0 mmol/L (5-15); CALCIUM 8.6 mg/dL (8.5-10.1); CHLORIDE 95 mmol/L (98-107)
[2020-07-01] MEDS: ALBUTEROL-IPRATROPIUM MDI INH INH SCH ×4 (05:34→19:56)
[2020-07-01 07:47] VITALS: BP 101/67
[2020-07-01] MEDS: FUROSEMIDE 40 MG/4 ML IV SCH ×2 (08:08→17:13)
[2020-07-01] MEDS: FLUTICASONE/VILANTEROL 200-25MCG/INH INH SCH (08:16)
[2020-07-01] MEDS: TIOTROPIUM BROMIDE 18 MCG/INH INH SCH (08:17)
[2020-07-01 09:48] VITALS: BP 108/70
[2020-07-01] MEDS: SODIUM CHLORIDE FLUSH 10ML SYR IVF SCH ×2 (09:49→19:56)
[2020-07-01] MEDS: SPIRONOLACTONE 25 MG TABLET PO SCH (09:49)
[2020-07-01] MEDS: PANTOPRAZOLE 40MG TABLET PO SCH ×2 (09:50→19:56)
[2020-07-01] MEDS: DIGOXIN 0.125 MG TABLET PO SCH (09:50)
[2020-07-01] MEDS: POTASSIUM CHLORIDE 20 MEQ TAB.ER.PRT PO SCH (09:50)
[2020-07-01] MEDS: AMIODARONE 200 MG TABLET PO SCH ×2 (09:50→19:56)
[2020-07-01] MEDS: MONTELUKAST 10 MG TABLET PO SCH (09:50)
[2020-07-01] MEDS: DILTIAZEM 240 MG CAP.ER.24H PO SCH (09:50)
[2020-07-01 14:33] VITALS: BP 110/66
[2020-07-01 18:41] VITALS: BP 111/70
[2020-07-01] MEDS: MELATONIN 5 MG TABLET PO SCH (19:55)
[2020-07-01] MEDS: ATORVASTATIN 40 MG TABLET PO SCH (19:55)
[2020-07-01] MEDS ORDERED: ALBUTEROL SULFATE 2.5 MG/3 ML NPPB ONE (23:30)
[2020-07-02 00:44] VITALS: BP 122/76
[2020-07-02] MEDS: METOPROLOL TARTRATE 50 MG TAB PO SCH ×3 (01:04→16:19)
[2020-07-02] MEDS: MEROPENEM 1 GM in SODIUM CHLORIDE 0.9% 100 ML IV SCH ×2 (01:04→10:14)
[2020-07-02] MEDS: ALBUTEROL HFA 90 MCG/SPRAY INH PRN ×2 (01:07→03:15)
[2020-07-02] MEDS: ALBUTEROL-IPRATROPIUM MDI INH INH PRN (03:28)
[2020-07-02] MEDS: ALBUTEROL-IPRATROPIUM MDI INH INH SCH ×4 (05:43→20:23)
[2020-07-02 07:21] VITALS: BP 110/69
[2020-07-02] MEDS ORDERED: DEXAMETHASONE 4 MG/ML, 5ML IVPush SCH (09:00)
[2020-07-02] MEDS: PANTOPRAZOLE 40MG TABLET PO SCH (09:11)
[2020-07-02] MEDS: DILTIAZEM 240 MG CAP.ER.24H PO SCH (09:11)
[2020-07-02] MEDS: FUROSEMIDE 40 MG/4 ML IV SCH ×2 (09:11→16:18)
[2020-07-02] MEDS: SPIRONOLACTONE 25 MG TABLET PO SCH (09:12)
[2020-07-02] MEDS: SODIUM CHLORIDE FLUSH 10ML SYR IVF SCH ×2 (09:12→20:24)
[2020-07-02] MEDS: MONTELUKAST 10 MG TABLET PO SCH (09:12)
[2020-07-02] MEDS: DIGOXIN 0.125 MG TABLET PO SCH (09:12)
[2020-07-02] MEDS: AMIODARONE 200 MG TABLET PO SCH ×2 (09:12→20:24)
[2020-07-02] MEDS: POTASSIUM CHLORIDE 20 MEQ TAB.ER.PRT PO SCH (09:12)
[2020-07-02] MEDS: FLUTICASONE/VILANTEROL 200-25MCG/INH INH SCH (09:13)
[2020-07-02] MEDS: TIOTROPIUM BROMIDE 18 MCG/INH INH SCH (09:13)
[2020-07-02 09:21] LABS: ANION GAP 2 mmol/L (5-15); CALCIUM 9.1 mg/dL (8.5-10.1); CHLORIDE 93 mmol/L (98-107)
[2020-07-02 09:22] LABS: CREATININE 0.76 mg/dL (0.7-1.3)
[2020-07-02 12:49] VITALS: BP 105/71
[2020-07-02] MEDS ORDERED: MAGNESIUM SULFATE PMX 2GM/50ML 50 ML IV ONE (16:00)
[2020-07-02] MEDS: PROPOFOL 100 ML IV PRN ×2 (17:05→21:59)
[2020-07-02] MEDS ORDERED: MIDAZOLAM 1 MG/ML, 5ML IVPush ONE (17:30)
[2020-07-02] MEDS ORDERED: PHARMACY MAY ADJ FOR RENAL FX MC SCH (17:30)
[2020-07-02] MEDS ORDERED: ETOMIDATE 20 MG/10 ML IVPush ONE (17:30)
[2020-07-02] MEDS: ENOXAPARIN 40 MG/0.4 ML SQ SCH (18:05)
[2020-07-02] MEDS: ATORVASTATIN 40 MG TABLET PO SCH (20:24)
[2020-07-02] MEDS: MELATONIN 5 MG TABLET PO SCH (20:24)
[2020-07-03] MEDS: METOPROLOL TARTRATE 50 MG TAB PO SCH ×3 (01:00→17:04)
[2020-07-03] MEDS: FENTANYL PF 100 MCG/2ML IV PRN ×3 (01:52→16:03)
[2020-07-03 03:41] LABS: ALBUMIN 2.1 g/dL (3.4-5.0); ANION GAP 3 mmol/L (5-15); CALCIUM 8.7 mg/dL (8.5-10.1); CHLORIDE 93 mmol/L (98-107)
[2020-07-03 03:52] LABS: ALANINE AMINOTRANSFERASE 39 U/L (12-78); ALKALINE PHOSPHATASE 59 U/L (45-117); BILIRUBIN,TOTAL 1.4 mg/dL (0.2-1.0); C-REACTIVE PROTEIN, QUANT 5.57 mg/dL (0.02-0.49); CREATININE 0.73 mg/dL (0.7-1.3); TOTAL PROTEIN 6.7 g/dL (6.4-8.2)
[2020-07-03] MEDS: ALBUTEROL-IPRATROPIUM MDI INH INH SCH (04:44)
[2020-07-03 05:06] LABS: D-DIMER 3.87 ug/mlFEU (0.00-0.52); INTERNATIONAL NORMALIZED RATIO 1.2 (0.93-1.1); PROTHROMBIN TIME 12.7 Seconds (9.6-11.5)
[2020-07-03 06:55] LABS: BASOPHILS % (AUTO) 0 % (0-1); EOSINOPHILS % (AUTO) 0 % (1-7); LYMPHOCYTES % (AUTO) 6 % (22-44); MEAN CORPUSCULAR HEMOGLOBIN 23.6 pg (27.5-34.5); MEAN CORPUSCULAR HGB CONC 30.6 g/dL (33.2-36.2); MEAN PLATELET VOLUME 7.5 fL (7.4-10.4); MONOCYTES % (AUTO) 8 % (2-9); NEUTROPHILS % (AUTO) 86 % (42-75); PLATELET COUNT 295 x10^3/uL (130-400); RED BLOOD COUNT 3.95 x10^6/uL (4.38-5.82); RED CELL DISTRIBUTION WIDTH 24.6 % (9.4-14.8)
[2020-07-03 07:04] LABS: HCT (SEDRATE) 30.3 % (39.2-51.8)
[2020-07-03 07:30] LABS: MD SCAN
[2020-07-03] MEDS: FUROSEMIDE 40 MG/4 ML IV SCH (07:30)
[2020-07-03] MEDS ORDERED: FUROSEMIDE 40 MG/4 ML IV SCH (07:30)
[2020-07-03] MEDS ORDERED: AcetaZOLAMIDE INJ 500 MG IVPush SCH (09:00)
[2020-07-03] MEDS: FLUTICASONE/VILANTEROL 200-25MCG/INH INH SCH (09:00)
[2020-07-03] MEDS: PANTOPRAZOLE 40 MG IV IV SCH (09:50)
[2020-07-03] MEDS: DIGOXIN 0.125 MG TABLET PO SCH (09:50)
[2020-07-03] MEDS: AMIODARONE 200 MG TABLET PO SCH ×2 (09:50→20:05)
[2020-07-03] MEDS: SPIRONOLACTONE 25 MG TABLET PO SCH (09:50)
[2020-07-03] MEDS: MONTELUKAST 10 MG TABLET PO SCH (09:50)
[2020-07-03] MEDS: DILTIAZEM 240 MG CAP.ER.24H PO SCH (09:51)
[2020-07-03] MEDS: SODIUM CHLORIDE FLUSH 10ML SYR IVF SCH ×2 (09:51→20:06)
[2020-07-03] MEDS: PROPOFOL 100 ML IV PRN ×3 (11:50→22:32)
[2020-07-03] MEDS: ENOXAPARIN 40 MG/0.4 ML SQ SCH (17:05)
[2020-07-03] MEDS: MELATONIN 5 MG TABLET PO SCH (20:05)
[2020-07-03] MEDS: ATORVASTATIN 40 MG TABLET PO SCH (20:06)
[2020-07-04] MEDS: METOPROLOL TARTRATE 50 MG TAB PO SCH (00:26)
[2020-07-04] MEDS: PROPOFOL 100 ML IV PRN ×2 (02:16→07:55)
[2020-07-04 03:56] LABS: BASOPHILS % (AUTO) 1 % (0-1); EOSINOPHILS % (AUTO) 0 % (1-7); LYMPHOCYTES % (AUTO) 13 % (22-44); MEAN CORPUSCULAR HEMOGLOBIN 23.7 pg (27.5-34.5); MEAN CORPUSCULAR HGB CONC 31.2 g/dL (33.2-36.2); MEAN PLATELET VOLUME 7.3 fL (7.4-10.4); MONOCYTES % (AUTO) 8 % (2-9); NEUTROPHILS % (AUTO) 78 % (42-75); PLATELET COUNT 300 x10^3/uL (130-400); RED BLOOD COUNT 4.02 x10^6/uL (4.38-5.82); RED CELL DISTRIBUTION WIDTH 25.1 % (9.4-14.8)
[2020-07-04 04:36] LABS: MD SCAN
[2020-07-04 06:47] LABS: ANION GAP 3 mmol/L (5-15); CALCIUM 8.6 mg/dL (8.5-10.1); CHLORIDE 96 mmol/L (98-107)
[2020-07-04 06:49] LABS: CREATININE 0.88 mg/dL (0.7-1.3)
[2020-07-04] MEDS: FUROSEMIDE 40 MG/4 ML IV SCH (07:54)
[2020-07-04] MEDS: FLUTICASONE/VILANTEROL 200-25MCG/INH INH SCH (09:00)
[2020-07-04] MEDS: PANTOPRAZOLE 40 MG IV IV SCH (09:55)
[2020-07-04] MEDS: AMIODARONE 200 MG TABLET PO SCH (09:56)
[2020-07-04] MEDS: DIGOXIN 0.125 MG TABLET PO SCH (09:56)
[2020-07-04] MEDS: DILTIAZEM 240 MG CAP.ER.24H PO SCH (09:56)
[2020-07-04] MEDS: SPIRONOLACTONE 25 MG TABLET PO SCH (09:56)
[2020-07-04] MEDS: MONTELUKAST 10 MG TABLET PO SCH (09:56)
[2020-07-04] MEDS: SODIUM CHLORIDE FLUSH 10ML SYR IVF SCH (09:57)
[2020-07-04] MEDS: ENOXAPARIN 40 MG/0.4 ML SQ SCH (17:30)
== END 2020-07-04 17:33 | disposition hospice, inpatient (51) | DRG 870 ==
LOC: SUATTDRO 12:30 → ED 13:17 → EDIP 14:17 → CSU 16:03 → 4WST 06-24 16:32 → 5SO 06-25 15:36 → 4WST 07-02 03:55 → CCU 07-02 16:49
PROVIDERS: ADMIT Family Medicine; ATTEND Internal Medicine
PROC: 5A1955Z Respiratory Ventilation, Greater than 96 Consecutive Hours (ICD-10-PCS; principal; 2020-06-19)
PROC: 0BH17EZ Insertion of Endotracheal Airway into Trachea, Via Natural or Artificial Opening (ICD-10-PCS; 2020-06-19)
PROC: 02HV33Z Insertion of Infusion Device into Superior Vena Cava, Percutaneous Approach (ICD-10-PCS; 2020-06-19)
PROC: 30233N1 Transfusion of Nonautologous Red Blood Cells into Peripheral Vein, Percutaneous Approach (ICD-10-PCS; 2020-06-19)
PROC: 0W3P8ZZ Control Bleeding in Gastrointestinal Tract, Via Natural or Artificial Opening Endoscopic (ICD-10-PCS; 2020-06-20)
PROC: 0BBG3ZX Excision of Left Upper Lung Lobe, Percutaneous Approach, Diagnostic (ICD-10-PCS; 2020-06-22)
PROC: 0BB38ZX Excision of Right Main Bronchus, Via Natural or Artificial Opening Endoscopic, Diagnostic (ICD-10-PCS; 2020-06-29)
DX: A41.9 Sepsis, unspecified organism (principal); E43 Unspecified severe protein-calorie malnutrition; G93.41 Metabolic encephalopathy; J18.9 Pneumonia, unspecified organism; J96.21 Acute and chronic respiratory failure with hypoxia; J96.22 Acute and chronic respiratory failure with hypercapnia; N17.0 Acute kidney failure with tubular necrosis; R65.21 Severe sepsis with septic shock; D62 Acute posthemorrhagic anemia; E87.1 Hypo-osmolality and hyponatremia; I48.20 Chronic atrial fibrillation, unspecified; I48.92 Unspecified atrial flutter; I50.30 Unspecified diastolic (congestive) heart failure; I82.612 Acute embolism and thrombosis of superficial veins of left upper extremity; J44.0 Chronic obstructive pulmonary disease with (acute) lower respiratory infection; K92.2 Gastrointestinal hemorrhage, unspecified; L03.90 Cellulitis, unspecified; Z68.25 Body mass index [BMI] 25.0-25.9, adult; E86.1 Hypovolemia; I11.0 Hypertensive heart disease with heart failure; I27.20 Pulmonary hypertension, unspecified; I34.0 Nonrheumatic mitral (valve) insufficiency; K02.9 Dental caries, unspecified; K20.90 Esophagitis, unspecified without bleeding; K42.9 Umbilical hernia without obstruction or gangrene; Z20.828 Contact with and (suspected) exposure to other viral communicable diseases; Z51.5 Encounter for palliative care; Z79.01 Long term (current) use of anticoagulants; Z80.6 Family history of leukemia; Z87.891 Personal history of nicotine dependence; Z88.0 Allergy status to penicillin; Z88.8 Allergy status to other drugs, medicaments and biological substances
CPT/HCPCS: 36415; 36600; 73110; 76000; 84145; 87449; J3490; J7613; 31622; 31624; 31627; 31629; 32405; 71045; 71250; 74176; 77012; 80048; 80053; 80076; 80162; 80202; 80320; 81001; 82247; 82533; 82803; 83540; 83550; 83605; 83615; 83735; 83880; 83930; 83935; 84100; 84443; 84478; 84484; 84550; 85018; 85025; 85379; 85610; 85651; 86140; 86480; 86635; 86738; 86850; 86900; 86923; 87015; 87040; 87070; 87081; 87086; 87102; 87116; 87205; 87206; 87385; 87635; 88172; 88173; 88177; 88305; 88312; 88341; 88342; 93005; 93306; 94002; 94003; 94640; 94660; G0378; J0456; J0696; J1100; J1650; J1940; J2185; J2250; J2704; J3010; J3370; J7060; C1932; C9113; G0480; J0282; J0330; J2060; J3475; J7040; J7050; P9016; U0003